=== PATIENT | male | born 1965 | race Hispanic/Latino ===

== ENCOUNTER 2019-12-21 16:22 | Emergency (ER) | payer BC ==
[2019-12-21] MEDS ORDERED: HYDROcodone/Acetaminophen 10/325 mg Tablet ONE (19:38)
[2019-12-21] MEDS ORDERED: Ketorolac Tromethamine 30 MG/ML VIAL ONE (19:38)
--- NOTE | 2019-12-21 20:38 | RAD ---
RIGHT ANKLE THREE VIEWS: 02/19/19 HISTORY: Fall. COMPARISON: None. FINDINGS: There is a distal fibular fracture at the syndesmosis. No lateral talar shift. There is also a medial malleolar tip fracture. Bimalleolar soft tissue swelling. No posterior malleolar fracture appreciate d. IMPRESSION: Bimalleolar fractures without significant displacement. POS: HOME
== END 2019-12-21 21:11 | disposition home or self-care (01) ==
LOC: ERS 16:22
DX: S82.844A Nondisplaced bimalleolar fracture of right lower leg, initial encounter for closed fracture (principal); I10 Essential (primary) hypertension; X50.9XXA Other and unspecified overexertion or strenuous movements or postures, initial encounter
CPT/HCPCS: 27808; 96372; J1885